=== PATIENT | male | born 1955 | race Caucasian/White ===

== ENCOUNTER 2019-03-17 09:00 | Day surgery (SDC) | payer OTHER ==
[2019-03-17] MEDS ORDERED: MIDAZOLAM HCL 2 MG/2 ML SINGLE DOSE VIAL ONE (09:26)
[2019-03-17 09:49] VITALS: BMI 29.9
[2019-03-17 11:14] VITALS: TEMP 97.7
[2019-03-17 11:41] VITALS: BP 117/80; PULSE 84
--- NOTE | 2019-03-18 16:14 | PATH ---
Surgical Pathology Report Patient Name: SHANIQUA NORTH [facility] [place]. Rec. #: [id number] /Age/Gender: 1955 (Age: 63) / M Account: [id number] Location: [facility]-ENDOSCOPY Taken: 03/17/2019 Received: 03/17/2019 Reported: 03/18/2019 Physicians: CATHERINE CARDONA Specimen(s) Received POLYP SIGMOID Clinical History History of colon polyp Postoperative diagnosis: Polyp at sigmoid, diverticulosis, hemorrhoids Final Diagnosis SIGMOID COLON, POLYP, BIOPSY: HYPERPLASTIC POLYP. Electronically Signed Jennifer Walls M.D. Gross Description Received in formalin, labeled "biopsy sigmoid polyp" is a joseph, irregular portion of soft tissue measuring 0.5 cm. in greatest dimension. The specimen is submitted in toto in one cassette. DL/03/17/2019 saudi/03/17/2019
== END 2019-03-17 11:40 | disposition home or self-care (01) ==
LOC: JASU-ENDO 09:00
PROVIDERS: ATTEND Internal Medicine Gastroenterology
PROC: 0DBN8ZX Excision of Sigmoid Colon, Via Natural or Artificial Opening Endoscopic, Diagnostic (ICD-10-PCS; principal; 2019-03-17 09:30)
DX: Z12.11 Encounter for screening for malignant neoplasm of colon (principal); Z86.010 Personal history of colon polyps; D12.5 Benign neoplasm of sigmoid colon; K57.30 Diverticulosis of large intestine without perforation or abscess without bleeding; K64.8 Other hemorrhoids
CPT/HCPCS: 88305-TC